=== PATIENT | female | born 1990 | race Caucasian/White ===

== ENCOUNTER 2022-04-16 17:30 | Emergency (ER) | payer MEDICAID ==
[~2022-04-16] VITALS: Ht 183 cm; Wt 95.0 kg
[~2022-04-16 17:30] MED LIST: BIRTH CONTROL
[2022-04-16 17:44] VITALS: BP 99/65
== END 2022-04-16 17:56 | disposition left against medical advice (07) ==
LOC: EDUNIT# 17:30 → ER 17:35
DX: R51.9 Headache, unspecified (principal); M54.2 Cervicalgia; R42 Dizziness and giddiness; F17.210 Nicotine dependence, cigarettes, uncomplicated; Y04.8XXA Assault by other bodily force, initial encounter
CPT/HCPCS: 99281